=== PATIENT | female | born 1990 | race Hispanic/Latino ===

== ENCOUNTER 2017-10-29 00:11 | Emergency (ER) | payer BC ==
[~2017-10-29] VITALS: Ht 154.9 cm; Wt 122.5 kg
[2017-10-29] MEDS ORDERED: MORPHINE SULFATE 2 MG/ML SYR IV STA (00:29)
[2017-10-29] MEDS ORDERED: KETOROLAC TROMETHAMINE 30 MG/ML VIAL IV STA (00:29)
[2017-10-29] MEDS ORDERED: ONDANSETRON HCL INJ 2 MG/ML VIAL IV STA (00:29)
[2017-10-29] MEDS ORDERED: SODIUM CHLORIDE 0.9% 1000ML 1,000 ML IV SCH ×2 (00:30→01:30)
[2017-10-29] MEDS ORDERED: CEFTRIAXONE SOD 1 GM VIAL IV ONE (01:00)
[2017-10-29 03:31] VITALS: BP 135/89
== END 2017-10-29 03:50 | disposition home or self-care (01) ==
LOC: FSED 00:11
DX: R10.30 Lower abdominal pain, unspecified (principal); N93.9 Abnormal uterine and vaginal bleeding, unspecified; N94.6 Dysmenorrhea, unspecified; N30.90 Cystitis, unspecified without hematuria
CPT/HCPCS: 80053; 81003; 81025; 85025; 87086; 99284; J0696; J1885; J2270; J2405; 76830

== ENCOUNTER 2017-10-30 00:56 | Emergency (ER) | payer BC ==
[~2017-10-30] VITALS: Ht 154.9 cm; Wt 122.5 kg
[2017-10-30] MEDS ORDERED: KETOROLAC TROMETHAMINE 30 MG/ML VIAL IV STA (01:32)
[2017-10-30] MEDS ORDERED: SODIUM CHLORIDE 0.9% 1000ML 1,000 ML IV SCH (01:45)
[2017-10-30] MEDS ORDERED: MORPHINE SULFATE 2 MG/ML SYR IV STA (02:12)
[2017-10-30] MEDS ORDERED: ONDANSETRON HCL INJ 2 MG/ML VIAL IV STA (02:12)
--- NOTE | 2017-10-30 03:05 | Diagnostic Imaging Report ---
EXAM: CT Abdomen and Pelvis WITHOUT contrast INDICATION: Abdominal pain. COMPARISON: None. TECHNIQUE: Abdomen and pelvis were scanned utilizing a multidetector helical scanner from the lung base to the pubic symphysis without administration of IV contrast. Absence of intravenous contrast decreases sensitivity for detection of focal lesions and vascular pathology. Coronal and sagittal reformations were obtained. Routine protocol was performed. IV CONTRAST: None. ORAL CONTRAST: Water RADIATION DOSE: Total DLP: 951.08 mGy*cm Estimated effective dose: (DLP x 0.015 x size factor) mSv COMPLICATIONS: None FINDINGS: LINES and TUBES: None. LOWER THORAX: Unremarkable HEPATOBILIARY: No focal hepatic lesions. No biliary ductal dilation. GALLBLADDER: No radio-opaque stones or sludge. No wall thickening. SPLEEN: No splenomegaly. PANCREAS: No focal masses or ductal dilatation. ADRENALS: No adrenal nodules KIDNEYS/URETERS: No hydronephrosis. No cystic or solid mass lesions. No stones. GI TRACT: No abnormal distention, wall thickening, or evidence of bowel obstruction. Appendix is normal. PELVIC ORGANS/BLADDER: Unremarkable. LYMPH NODES: No lymphadenopathy. VESSELS: Unremarkable. PERITONEUM / RETROPERITONEUM: No free air or fluid. BONES: Unremarkable. SOFT TISSUES: Unremarkable. IMPRESSION: 1. No acute intra-abdominal or pelvic abnormalities. Signed by: Dr. Ibrahima Beverly M.D. on 10/30/2017 3:01 AM
== END 2017-10-30 04:00 | disposition home or self-care (01) ==
LOC: FSED 00:56
DX: N94.5 Secondary dysmenorrhea (principal); N30.01 Acute cystitis with hematuria; E87.6 Hypokalemia; R11.0 Nausea; K52.9 Noninfective gastroenteritis and colitis, unspecified
CPT/HCPCS: 74176; 80048; 85025; 99284; J1885; J2270; J2405

== ENCOUNTER 2018-08-05 00:46 | Emergency (ER) | payer BC ==
[~2018-08-05] VITALS: Ht 154.9 cm; Wt 122.5 kg
--- OUTSIDE RECORDS SUMMARY | 2018-08-05 00:48 | XMS REPORT ---
Author Author [facility] Address Unknown Phone Unavailable Care Team Providers Care Educational Administrator Name Role Phone Camilla HURT Unavailable Unavailable Payers Payer Name Policy Type Policy Number Effective Date Expiration Date Problems This patient has no known problems. Allergies, Adverse Reactions, Alerts Allergy Name Allergy Type Status Severity Reaction(s) Onset Date Inactive Date Treating Clinician Comments No Known Allergies DA Active U 2018-04-29 00:00:00 No Known Allergies DA Active U 2018-01-27 00:00:00 No Known Allergies DA Active U 2018-01-20 00:00:00 No Known Allergies DA Active U 2018-01-13 00:00:00 No Known Allergies DA Active U 2015-02-03 00:00:00 No Known Allergies DA Active U 2014-07-02 00:00:00 Medications This patient has no known medications. Results Test Description Test Time Test Comments Text Results Atomic Results Result Comments INFLUENZA A B PCR 2018-04-29 14:51:00 INFLUENZA A PCR (test code=FLUAPCR) NEGATIVE NEGATIVE INFLUENZA B PCR (test code=FLUBPCR) NEGATIVE NEGATIVE DRUGS OF ABUSE [id number] 14:41:00* Test Item Value Reference Range Comments UR COCAINE (test code=COCAU) NEGATIVE NEGATIVE DETECTION CUT OFF: 150 ng/mL UR CANNABINOIDS (test code=CANU) NEGATIVE NEGATIVE DETECTION CUT OFF: 50 ng/mL UR AMPHETAMINE (test code=AMPHU) POSITIVE NEGATIVE RESULTS CALLED TO ADALI.READ BACK & CONFIRMED? Y.BY [facility] 04/29/18 1437. DETECTION CUT OFF: 500 ng/mL UR BARBITURATE QUAL (test code=BARBQLU) POSITIVE NEGATIVE RESULTS CALLED TO ADALI.READ BACK & CONFIRMED? Y.BY [facility] 04/29/18 1438. DETECTION CUT OFF: 200 ng/mL UR BENZODIAZEPINE (test code=BENZU) NEGATIVE NEGATIVE DETECTION CUT OFF: 150 ng/mL UR OPIATES QUAL (test code=OPIAQLU) NEGATIVE NEGATIVE DETECTION CUT OFF: 100 ng/mL UR PHENCYCLIDINE (PCP) (test code=PHENCU) NEGATIVE NEGATIVE DETECTION CUT OFF: 25 ng/mL UA RFLX MICR CULT IF [id number] 14:10:00* Test Item Value Reference Range Comments UA COLOR (test code=COLU) BUCK YELLOW UA APPEARANCE (test code=APPU) CLOUDY CLEAR UA GLUCOSE DIPSTICK (test code=DGLUU) NEGATIVE NEG UA BILIRUBIN DIPSTICK (test code=BILU) NEGATIVE NEG UA KETONE DIPSTICK (test code=KETU) NEGATIVE NEG UA SPECIFIC GRAVITY (test code=SGU) 1.030 1.001-1.035 UA BLOOD DIPSTICK (test code=ERNESTINA) NEG NEG UA PH DIPSTICK (test code=MYRNA) 5.0 5-9 UA PROTEIN DIPSTICK (test code=PROU) 1+ NEG UA UROBILINIOGEN DIPSTICK (test code=URO) NEGATIVE mg/dL NEG UA NITRITE DIPSTICK (test code=RONNY) NEG NEG UA LEUKOCYTE ESTERASE DIPSTICK (test code=LEUU) NEG NEG UA WBC (test code=WBCU) 6-10 #/hpf NONE SEEN UA RBC (test code=RBCU) 0-2 #/hpf NONE SEEN UA EPITHELIAL CELLS (test code=EPIU) MODERATE #/HPF RARE-FEW UA BACTERIA (test code=BACU) RARE /HPF RARE-FEW UA MUCUS (test code=MUCU) 4+ NONE SEEN - XR CHEST 2 [id number] 14:08:00 Patient Name: GLEN SALVADOR Unit No: [id number] EXAMS: CPT CODE: [id number] XR CHEST 2 V [id number] EXAM: PA and lateral chest. EXAM DATE: April 29, 2018 CLINICAL HISTORY: Arm/chest pain COMPARISON: October 20, 2014 [facility] Cardiomediastinal silhouette is within normal limits. The lungs appear free of acute disease. Osseous structures are within normal limits. IMPRESSION: No evidence of acute cardiopulmonary disease. at 1408 Reported and signed by: Estella Aj MD CC: Vlad Nova MD; Felisa Mojica MD Technologist: RT Humberto Trnscrbd D/ ([id number]) [email or web address] Orig Print D/T: S: 04/29/2018 (8834) [facility] NAME: GLEN SALVADOR Radiology Department PHYS: Felisa [address] : 1990 AGE: 27 SEX: F [place], [place] [address] LOC: [facility] PHONE #: [phone] EXAM DATE: 04/29/2018 STATUS: REG ER FAX #: [phone] RAD NO: Page 1 Signed Report CPK-MB [id number] 13:35:00* Test Item Value Reference Range Comments CREATINE KINASE (CK) (test code=CK) 35 Units/L 26-192 CKMB (test code=CKMBT) <0.5 ng/mL 0-3.6 RELATIVE % INDEX (test code=REL%) 1.428 0.0-5.0 [id number] 13:35:00* Test Item Value Reference Range Comments TROPONIN-I (test code=TROPI) <0.017 ng/mL <0.056 COMPREHENSIVE METABOLIC [id number] 13:29:00* Test Item Value Reference Range Comments SODIUM (test code=NA) 140 mEq/L 135-145 POTASSIUM (test code=K) 3.0 mEq/L 3.5-5.0 CHLORIDE (test code=CL) 106 mEq/L 100-115 CARBON DIOXIDE (test code=CO2) 24 mEq/L 22-31 ANION GAP (test code=GAP) 13.10 10-20 GLUCOSE (test code=GLU) 91 mg/dL 65-110 BLOOD UREA NITROGEN (test code=BUN) 7 mg/dL 7-18 GLOMERULAR FILTRATION RATE (test code=GFR) 76 ml/min >60 CREATININE (test code=CREAT) 0.9 mg/dL 0.5-1.0 TOTAL PROTEIN (test code=PROT) 6.7 gm/dL 6.3-8.2 ALBUMIN (test code=ALB) 3.1 gm/dL 3.4-4.8 CALCIUM (test code=CA) 8.5 mg/dL 8.4-10.2 BILIRUBIN TOTAL (test code=BILT) 0.5 mg/dL 0.2-1.0 SGOT/AST (test code=AST) 21 units/L 15-37 SGPT/ALT (test code=ALT) 31 units/L 12-78 ALKALINE PHOSPHATASE TOTAL (test code=ALKP) 77 units/L 46-116 [id number] 13:29:00* Test Item Value Reference Range Comments AMYLASE (test code=GIL) 22 units/L 30-110 [id number] 13:29:00* Test Item Value Reference Range Comments LIPASE (test code=LIP) 103 units/L 73-393 CBC W/AUTO [id number] 13:03:00* Test Item Value Reference Range Comments WHITE BLOOD CELL (test code=WBC) 6.3 K/mm3 6.6-12.1 RED BLOOD CELL (test code=RBC) 4.75 M/mm3 3.45-5.01 HEMOGLOBIN (test code=HGB) 10.9 g/dL 10.7-13.9 HEMATOCRIT (test code=HCT) 37.6 % 32.1-42.1 MEAN CELL VOLUME (test code=MCV) 79 fL 84.1-94.8 MEAN CELL HGB (test code=MCH) 22.9 pg 27-35 MEAN CELL HGB CONCETRATION (test code=MCHC) 29.0 gm/dL 32.2-34.1 RED CELL DISTRIBUTION WIDTH (test code=RDW) 13.7 % 12.4-16.5 PLATELET COUNT (test code=PLT) 198 K/mm3 133-385 IMMATURE PLATELET FRACTION (test code=IPF) 0.0 % 0.0-10.8 MEAN PLATELET VOLUME (test code=MPV) 11.3 fl 9.1-12.7 NEUTROPHIL % (test code=NT%) 64.0 % 56.5-79.4 LYMPHOCYTE % (test code=LY%) 23.4 % 14.3-34.3 MONOCYTE % (test code=MO%) 11.8 % 5.1-10.4 EOSINOPHIL % (test code=EO%) 0.3 % 0.1-3.0 BASOPHIL % (test code=BA%) 0.2 % 0.1-1.0 NEUTROPHIL # (test code=NT#) 4.1 K/mm3 LYMPHOCYTE # (test code=LY#) 1.5 K/mm3 MONOCYTE # (test code=MO#) 0.8 K/mm3 EOSINOPHIL # (test code=EO#) 0.02 K/mm3 BASOPHIL # (test code=BA#) 0.0 K/mm3 RBC MORPHOLOGY REQUIRED (test code=RBCM) NORMAL NORMAL PLATELET MORPHOLOGY REQUIRED (test code=PLTMR) NORMAL NORMAL UTERUS,OTHER THAN PROLAPSE/[id number] 18:16:00 RUN DATE: 01/30/18 [facility] PAGE 1 RUN TIME: 1850 Specimen Inqui ry RUN USER: INTERFACE PATIENT: GLEN SALVADOR ACCT #: [id number] LOC: LELE #: [id number] AGE/SX: ROOM: [facility] RE01/27/18REG DR: Sabra Coughlin MD : [birth year] BED: A DIS: 01/28/18 STATUS: DIS Otto TLOC: SPEC #: [id number] RECD: 01/27/18 STATUS: VASILIY RE #: [id number] ABISAI: 01/27/18- SUBM DR: Sabra Coughlin MD ENTERED: 01/27/18 SP TYPE: UTERUSOTH OTHR DR: Kassi Nova MD ORDERED: LEVEL V SURGICA/2 CODES: [id number] - GALLBLADDER, NO [id number] - UTERUS, NOS [place]IES [place]: [place] [address] [facility] [address] [place] [address] Sabra Coughlin MD [address] [facility] [address] [place] [address] [email or web address] PROCEDURES: LEVEL V SURGICA (Incomplete) TISSUES: UTERUS, NOS - UTERUS, CERVIX AND BILATER AL FALLOPIAN TUBES GALLBLADDER, NOS - GALLBLADDER CLINICAL HISTO RY 27 year old, dysfunctional uterine bleeding, gallstones (kr) JOSÉ MIGUEL L DIAGNOSIS Specimen #1 gallbladder, cholecystectomy: - cholesterolosi s - lithiasis Specimen #2 uterus, hysterectomy: - cervix - no pathologic diagnosis - lower uterine segment - scar - endomet rium - glandular-stromal dissociation - myometrium - no pathologic diagno sis - serosa - no pathologic diagnosis - fallopian tube, right, re section - no pathologic diagnosis - fallopian tube, left, resection - no pathologic diagnosis CONTINUED ON NEXT PAGE RUN DATE: 01/30/18 [facility] y PAGE 2 RUN TIME: 1850 Speci men Inquiry RUN USER: INTERFACE SPEC #: [id number] PATIENT: GLEN MONTALVO #[id number] (Continued) FINAL DIAGNOSIS (Continued) Tissue code 1 CPT code(s): 94035, 17996 cds/wpd GROSS DESCRIPTION ANATOMIC SOURCE OF TISSUE (per Requisition): 1. Gallbladder 2. Uterus, cervix and bilateral fallopian tubes Ea specimen is labeled with the patient's name and medical record number. Specimen #1 is designated "gallbladder" and consists of a pear-shaped, intact gallbladder measuring 7.5 x 4 x 4 cm. The serosa is light purple, smooth, and glistening. The gallbladder cavity contains yellow, viscid bile, and numerous yellow gallstones ranging from 0.1 to 0.3 cm. The mucosa is brown and velvety. Ultrasound Supervisor sections are submitted labeled A. Specimen #2 is desig nated "uterus, cervix, and bilateral fallopian tubes" and consists of 10.7 x 9 .0 x 8.0 cm hysterectomy specimen with bilateral fallopian tubes with fimbria attached. The uterus weighs 174 gm. The serosa is sewell, smooth, and glistenin g. The lower anterior wall contains a healed scar. The cervical external os measures 0.7 cm. The portio vaginalis measures 2.8 cm. Ultrasound Supervisor se ctions are submitted labeled B. The endometrium measures up to 0.2 cm. Th e myometrium measures up to 3.0 cm and contains no discrete lesion. Represent ative sections are submitted labeled C and D. The right fallopian tube wit h fimbria measures 9 x 0.3 x 0.3 cm. The entire fimbria and two cross-section s of fallopian tube are submitted and labeled E. The left fallopian tube w ith fimbria measures 9 x 0.5 x 0.3 cm. The entire fimbria and two cross-secti on of tube are submitted labeled F. anita 01/27/18 @ 8710 MICROSCOPIC DESCR IPTION Sections of gallbladder show cholesterolosis. The endometrium shows glandular-stromal dissociation. No myometrial abnormality is identified. cds /wpd Signed Grey Acharya 01/30/18 1816 END O F REPORT CT ABD/PEL WO [id number] 03:00:00 [place] [address] Patient Name: GLEN SALVADOR MR #: [id number] : 1990 Age/Sex: 27/F Req #: [id number] Adm Physician: Ordered by: ROXANA HURT MD Report #: [id number] [facility]: [facility] Room/Bed: Procedure: [id number] HOPD/CT ABD/PEL WO CONTRAST-HOPD Exam Date: 10/30/17 Exam Time: 0205 REPORT STATUS: Signed EXAM: CT Abdomen and Pelvis WITHOUT contrast I NDICATION: Abdominal pain. COMPARISON: None. TECHNIQUE: Abdomen and pelvis w ere scanned utilizing a multidetector helical scanner from the lung base to th e pubic symphysis without administration of IV contrast. Absence of intravenou s contrast decreases sensitivity for detection of focal lesions and vascular p athology. Coronal and sagittal reformations were obtained. Routine protocol wa s performed. IV CONTRAST: None. ORAL CONTRAST: Wate r RADIATION DOSE: Total DLP: 951.08 mGy*cm Estimate d effective dose: (DLP x 0.015 x size factor) mSv COMPLICATIONS: N one FINDINGS: LINES and TUBES: None. LOWER THORAX: Unremarkable HEPATOBILIARY: No focal hepatic lesions. No biliary ductal dilation. GALLBLADDER: No radio-opaque stones or sludge. No wall thickening. SP JAIMIE: No splenomegaly. PANCREAS: No focal masses or ductal dilatation. ADRENALS: No adrenal nodules KIDNEYS/URETERS: No hydronephrosis. No cystic or solid mass lesions. No stones. GI TRACT: No abnormal distent ion, wall thickening, or evidence of bowel obstruction. Appendix is norm al. PELVIC ORGANS/BLADDER: Unremarkable. LYMPH NODES: No lymphadenopat hy. VESSELS: Unremarkable. PERITONEUM / RETROPERITONEUM: No free air o r fluid. BONES: Unremarkable. SOFT TISSUES: Unremarkable. IMPRESSION: 1. No acute intra-abdominal or pelvic abnormalities. S igned by: Dr. Giovanni Beverly M.D. on 10/30/2017 3:01 AM Dictated By: GIOVANNI VITALE MD 0301 Transcribed By: CLARA on 10/30/17 0301 COPY TO: ROXANA HURT MD
[2018-08-05] MEDS ORDERED: LIDOCAINE HCL 2% LOCAL 20 ML VIAL ONE (01:11)
[2018-08-05] MEDS ORDERED: BACITRACIN ZINC 0.9GM TP ONE (01:20)
== END 2018-08-05 01:23 | disposition home or self-care (01) ==
LOC: FSED 00:46
DX: S91.135A Puncture wound without foreign body of left lesser toe(s) without damage to nail, initial encounter (principal); W26.8XXA Contact with other sharp object(s), not elsewhere classified, initial encounter; Y92.008 Other place in unspecified non-institutional (private) residence as the place of occurrence of the external cause
CPT/HCPCS: 64450; 99282; J2001

== ENCOUNTER 2019-10-01 00:27 | Emergency (ER) | payer BC, OTHER ==
[~2019-10-01] VITALS: Ht 154.9 cm; Wt 99.8 kg
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
--- OUTSIDE RECORDS SUMMARY | 2019-10-01 01:11 | XMS REPORT | Continuity of Care Document ---
Author Author [facility] t Organization [facility] Address 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 Allergies, Adverse Reactions, Alerts Allergy Name Allergy Type Status Severity Reaction(s) Onset Date Inacti ve Date Treating Clinician Comments Source No Known Allergies DA Active U 2018-04-29 00:00:00 [facility] No Known Allergies DA Active U 2018-01-27 00:00:00 [facility] No Known Allergies DA Active U 2018-01-20 00:00:00 [facility] No Known Allergies DA Active U 2018-01-13 00:00:00 [facility] No Known Allergies DA Active U 2015-02-03 00:00:00 [facility] No Known Allergies DA Active U 2014-07-02 00:00:00 [facility] Medications This patient has no known medications. Procedures This patient has no known procedures. Encounters Start Date/Time End Date/Time Encounter Type Admission Type Attendi [email or web address] Care Department Encounter ID Source 2018-08-05 00:46:00 2018-08-05 01:23:00 Departed Emergency Room [facility] [id number] [facility] 2017-10-30 00:56:00 2017-10-30 04:00:00 Departed Emergency Room 1 ROXANA HURT [facility] [id number] [facility] 2017-10-29 00:11:00 2017-10-29 03:50:00 Departed Emergency Room [facility] [id number] [facility] Results Test Description Test Time Test Comments Results Result Comments Source INFLUENZA A B PCR 2018-04-29 14:51:00 Test Item INFLUENZA A PCR (test code = FLUAPCR) NEGATIVE NEGATIVE INFLUENZA B PCR (test code = FLUBPCR) NEGATIVE NEGATIVE DRUGS OF ABUSE [id number] 14:41:00* Test Item Value Reference Range Interpretation Comments UR COCAINE (test code = COCAU) NEGATIVE NEGATIVE DETECTION CUT OFF: 150 ng/mL UR CANNABINOIDS (test code = CANU) NEGATIVE NEGATIVE DETECTION CUT OFF: 50 ng/mL UR AMPHETAMINE (test code = AMPHU) POSITIVE NEGATIVE A RESULTS CALLED TO READ BACK & CONFIRMED? Y.BY F.LAB.VFY 04/29/18 4927. DETECTION CUT OFF: 500 ng/mL UR BARBITURATE QUAL (test code = BARBQLU) POSITIVE NEGATIVE A RESULTS CALLED TO READ BACK & CONFIRMED? Y.BY F.LAB.VFY 04/29/18 1438. DETECTION CUT OFF: 200 ng/mL UR BENZODIAZEPINE (test code = BENZU) NEGATIVE NEGATIVE DETECTION CUT OFF: 150 ng/mL UR OPIATES QUAL (test code = OPIAQLU) NEGATIVE NEGATIVE DETECTION CUT OFF: 100 ng/mL UR PHENCYCLIDINE (PCP) (test code = PHENCU) NEGATIVE NEGATIVE DETECTION CUT OFF: 25 ng/mL UA RFLX MICR CULT IF [id number] 14:10:00* Test Item Value Reference Range Interpretation Comments UA COLOR (test code = COLU) BUCK YELLOW A UA APPEARANCE (test code = APPU) CLOUDY CLEAR A UA GLUCOSE DIPSTICK (test code = DGLUU) NEGATIVE NEG UA BILIRUBIN DIPSTICK (test code = BILU) NEGATIVE NEG UA KETONE DIPSTICK (test code = KETU) NEGATIVE NEG UA SPECIFIC GRAVITY (test code = SGU) 1.030 1.001-1.035 N UA BLOOD DIPSTICK (test code = ERNESTINA) NEG NEG UA PH DIPSTICK (test code = MYRNA) 5.0 5-9 UA PROTEIN DIPSTICK (test code = PROU) 1+ NEG A UA UROBILINIOGEN DIPSTICK (test code = URO) NEGATIVE mg/dL NEG UA NITRITE DIPSTICK (test code = RONNY) NEG NEG UA LEUKOCYTE ESTERASE DIPSTICK (test code = LEUU) NEG NEG UA WBC (test code = WBCU) 6-10 #/hpf NONE SEEN A UA RBC (test code = RBCU) 0-2 #/hpf NONE SEEN UA EPITHELIAL CELLS (test code = EPIU) MODERATE #/HPF RARE-FEW A UA BACTERIA (test code = BACU) RARE /HPF RARE-FEW UA MUCUS (test code = MUCU) 4+ NONE SEEN - XR CHEST 2 [id number] 14:08:00 Patient Name: GLEN SALVADOR Unit No: [id number] EXAMS: CPT CODE: [id number] XR CHEST 2 V 21373 EXAM: PA and lateral chest. EXAM DATE: April 29, 2018 CLINICAL HISTORY: Arm/chest pain COMPARISON: October 20, 2014 [facility] Cardiomediastinal silhouette is within normal limits. The lungs appear free of acute disease. Osseous structures are within normal limits. IMPRESSION: No evidence of acute cardiopulmonary disease. at 1408 Reported and signed by: Estella Aj MD CC: Vlad Nova MD; Felisa Mojica MD Technologist: RT Humberto Trnscrbd D/ ([id number]) [facility] Orig Print D/T: S: 04/29/2018 (6362) [facility] NAME: GLEN SALVADOR Radiology Department PHYS: Felisa [address] : 1990 AGE: 27 SEX: F [place], [place] [address] LOC: [facility] PHONE #: [phone] EXAM DATE: 04/29/2018 STATUS: REG ER FAX #: [phone] RAD NO: Page 1 Signed Report CPK-MB [id number] 13:35:00* Test Item Value Reference Range Interpretation Comments CREATINE KINASE (CK) (test code = CK) 35 Units/L 26-192 N CKMB (test code = CKMBT) <0.5 ng/mL 0-3.6 N RELATIVE % INDEX (test code = REL%) 1.428 0.0-5.0 N [id number] 13:35:00* Test Item Value Reference Range Interpretation Comments TROPONIN-I (test code = TROPI) <0.017 ng/mL <0.056 N COMPREHENSIVE METABOLIC [id number] 13:29:00* Test Item Value Reference Range Interpretation Comments SODIUM (test code = NA) 140 mEq/L 135-145 N POTASSIUM (test code = K) 3.0 mEq/L 3.5-5.0 L CHLORIDE (test code = CL) 106 mEq/L 100-115 N CARBON DIOXIDE (test code = CO2) 24 mEq/L 22-31 N ANION GAP (test code = GAP) 13.10 10-20 N GLUCOSE (test code = GLU) 91 mg/dL 65-110 N BLOOD UREA NITROGEN (test code = BUN) 7 mg/dL 7-18 N GLOMERULAR FILTRATION RATE (test code = GFR) 76 ml/min >60 N CREATININE (test code = CREAT) 0.9 mg/dL 0.5-1.0 N TOTAL PROTEIN (test code = PROT) 6.7 gm/dL 6.3-8.2 N ALBUMIN (test code = ALB) 3.1 gm/dL 3.4-4.8 L CALCIUM (test code = CA) 8.5 mg/dL 8.4-10.2 N BILIRUBIN TOTAL (test code = BILT) 0.5 mg/dL 0.2-1.0 N SGOT/AST (test code = AST) 21 units/L 15-37 N SGPT/ALT (test code = ALT) 31 units/L 12-78 N ALKALINE PHOSPHATASE TOTAL (test code = ALKP) 77 units/L 46-116 N [id number] 13:29:00* Test Item Value Reference Range Interpretation Comments AMYLASE (test code = GIL) 22 units/L 30-110 L [id number] 13:29:00* Test Item Value Reference Range Interpretation Comments LIPASE (test code = LIP) 103 units/L 73-393 N CBC W/AUTO [id number] 13:03:00* Test Item Value Reference Range Interpretation Comments WHITE BLOOD CELL (test code = WBC) 6.3 K/mm3 6.6-12.1 L RED BLOOD CELL (test code = RBC) 4.75 M/mm3 3.45-5.01 N HEMOGLOBIN (test code = HGB) 10.9 g/dL 10.7-13.9 N HEMATOCRIT (test code = HCT) 37.6 % 32.1-42.1 N MEAN CELL VOLUME (test code = MCV) 79 fL 84.1-94.8 L MEAN CELL HGB (test code = MCH) 22.9 pg 27-35 L MEAN CELL HGB CONCETRATION (test code = MCHC) 29.0 gm/dL 32.2-34. 1 L RED CELL DISTRIBUTION WIDTH (test code = RDW) 13.7 % 12.4-16. 5 N PLATELET COUNT (test code = PLT) 198 K/mm3 133-385 N IMMATURE PLATELET FRACTION (test code = IPF) 0.0 % 0.0-10.8 N MEAN PLATELET VOLUME (test code = MPV) 11.3 fl 9.1-12.7 N NEUTROPHIL % (test code = NT%) 64.0 % 56.5-79.4 N LYMPHOCYTE % (test code = LY%) 23.4 % 14.3-34.3 N MONOCYTE % (test code = MO%) 11.8 % 5.1-10.4 H EOSINOPHIL % (test code = EO%) 0.3 % 0.1-3.0 N BASOPHIL % (test code = BA%) 0.2 % 0.1-1.0 N NEUTROPHIL # (test code = NT#) 4.1 K/mm3 LYMPHOCYTE # (test code = LY#) 1.5 K/mm3 MONOCYTE # (test code = MO#) 0.8 K/mm3 EOSINOPHIL # (test code = EO#) 0.02 K/mm3 BASOPHIL # (test code = BA#) 0.0 K/mm3 RBC MORPHOLOGY REQUIRED (test code = RBCM) NORMAL NORMAL PLATELET MORPHOLOGY REQUIRED (test code = PLTMR) NORMAL MACO L UTERUS,OTHER THAN PROLAPSE/[id number] 18:16:00 RUN DATE: 01/30/18 [facility] PAGE 1 RUN TIME: 1850 Specimen Inqui ry RUN USER: INTERFACE PATIENT: MADELEINEGLEN ACCT #: [id number] LOC: LELE U #: [id number] AGE/SX: 27/F ROOM: [facility] RE01/27/18REG DR: Sabra Coughlin MD : [birth year] BED: A DIS: 01/28/18 STATUS: DIS Otto TLOC: SPEC #: [id number] RECD: 01/27/18 STATUS: VASILIY REQ #: [id number] ABISAI: 01/27/18 DR: Sabra Coughlin MD ENTERED: 01/27/18 SP TYPE: UTERUSOTH OTHR DR: Kassi Nova MD ORDERED: LEVEL V SURGICA/2 CODES: [id number] - GALLBLADDER, NO [id number] - UTERUS, NOS [place]IES [place]: [place] [id number] [facility] [address] [place] [address] Sabra Coughlin MD [address] [facility] [address] [place] [address] [email or web address] PROCEDURES: LEVEL V SURGICA (Incomplete) TISSUES: UTERUS, [...] NEXT PAGE RUN DATE: 01/30/18 [facility] PAGE 2 RUN TIME: 1850 Speci men Inquiry RUN USER: INTERFACE SPEC #: [id number] PATIENT: GLEN MONTALVO #[id number] (Continued) FINAL DIAGNOSIS (Continued) Tissue code 1 CPT code(s): 49135, 23879 cds/wpd GROSS DESCRIPTION ANATOMIC SOURCE OF TISSUE (per Requisition): 1. Gallbladder 2. Uterus, cervix and bilateral fallopian tubes Ea ch specimen is labeled with the patient's name and medical record number. Specimen #1 is designated "gallbladder" and consists of a pear-shaped, intact gallbladder measuring 7.5 x 4 x 4 cm. The serosa is light purple, smooth, and glistening. The gallbladder cavity contains yellow, viscid bile, and numerous yellow gallstones ranging from 0.1 to 0.3 cm. The mucosa is brown and velvety. Dietary Clerk sections are submitted labeled A. Specimen #2 [...] cm. The portio vaginalis measures 2.8 cm. Dietary Clerk se ctions are submitted labeled B. The [...] on of tube are submitted labeled F. hz/kr 01/27/18 @ 3231 MICROSCOPIC DESCR IPTION Sections of gallbladder show cholesterolosis. The endometrium shows glandular-stromal dissociation. No myometrial abnormality is identified. cds /wpd Signed Grey Acharya 01/30/18 1816 END O F REPORT CT ABD/PEL WO [id number] 03:00:00 [place] [address] Patient Name: GLEN SALVADOR MR #: [id number] : 1990 Age/Sex: 27/F Req #: [id number] Adm Physician: Ordered by: ROXANA HURT MD Report #: [id number] Location: [facility] Room/Bed: Procedure: [id number] HOPD/CT ABD/PEL WO CONTRAST-HOPD Exam Date: 10/30/17 [...] 3:01 AM Dictated By: GIOVANNI VITALE MD 0 Transcribed By: CLARA on 10/30/17300 COPY TO: ROXANA HURT MD
[2019-10-01 01:17] VITALS: BP 144/66
== END 2019-10-01 01:12 | disposition home or self-care (01) ==
LOC: FSED 01:00
DX: S00.83XA Contusion of other part of head, initial encounter (principal); W06.XXXA Fall from bed, initial encounter; Y92.003 Bedroom of unspecified non-institutional (private) residence as the place of occurrence of the external cause
CPT/HCPCS: 99282

== ENCOUNTER → 2021-03-26 | Day surgery (SDC) | payer BC ==
[~2021-03-26] MED LIST: FENTANYL CITRATE/PF 100MCG/2 ML INJ ONE; IOPAMIDOL 200 MG/ML 20 ML VIAL IT ONE; LIDOCAINE HCL 1% 30ML-PF VIAL ONE; LIDOCAINE HCL 2% LOCAL INJ 5 ML SDV VIAL INJ ONE; MIDAZOLAM HCL 2 MG/2 ML VIAL ONE; ONE A DAY PO; POVIDONE IODINE 0.05% 0.05 % ML PO ONE; PROPOFOL IV EMULSION 10 MG/ML 20 ML VIAL ONE; TRIAMCINOLONE ACET 40 MG/ML VIAL ONE
[2021-03-26 08:10] VITALS: BP 127/79
== END | disposition home or self-care (01) ==
LOC: OR 05:39
PROVIDERS: ATTEND Physical Medicine & Rehabilitation Pain Medicine
DX: M47.896 Other spondylosis, lumbar region (principal); M53.86 Other specified dorsopathies, lumbar region; M25.48 Effusion, other site; R93.7 Abnormal findings on diagnostic imaging of other parts of musculoskeletal system; E66.01 Morbid (severe) obesity due to excess calories; Z01.812 Encounter for preprocedural laboratory examination; Z20.822 Contact with and (suspected) exposure to COVID-19; Z91.81 History of falling
CPT/HCPCS: 64493; 64494; 64495; J2001 ×2; J2250; J2704; J3010; J3301; Q9967; U0002; 77003